=== PATIENT | male | born 2000 | race Caucasian/White ===

== ENCOUNTER 2021-08-24 07:06 | Emergency (ER) | payer BC ==
[~2021-08-24] VITALS: Ht 170.2 cm; Wt 100.0 kg
[2021-08-24 07:08] VITALS: TEMP 98.8
[2021-08-24] MEDS ORDERED: PEPCID 20MG TAB20 MG PO (07:46)
[2021-08-24] MEDS ORDERED: EPIPEN 2-PAK1 MG/ML IM (07:46)
[2021-08-24] MEDS ORDERED: BENADRYL50 MG PO (07:46)
[2021-08-24 08:01] VITALS: BP 124/76; PULSE 78
== END 2021-08-24 08:08 | disposition home or self-care (01) ==
LOC: COL.ER 07:06
DX: T78.40XA Allergy, unspecified, initial encounter (principal); Z88.1 Allergy status to other antibiotic agents
CPT/HCPCS: J8540